=== PATIENT | female | born 1960 | race Caucasian/White ===

== ENCOUNTER 2017-08-26 21:09 | Emergency (ER) | payer BC ==
[2017-08-26] MEDS ORDERED: Penicillin G Benzathine/Procaine 600-600 1.2 Millunits/2 ML Syringe IM ONE (22:00)
[2017-08-26] MEDS ORDERED: Penicillin G Benzathine 600,000 Units/1 ML Syringe IM ONE (22:11)
--- NOTE | 2017-08-26 22:18 | EDM.PDOC ---
ED HPI GENERAL MEDICAL PROBLEM - General Chief Complaint: ENT Problem Stated Complaint: sore throat Time Seen by Provider: 08/26/17 21:59 Source of Information: Reports: Patient History Limitations: Reports: No Limitations - History of Present Illness INITIAL COMMENTS - FREE TEXT/NARRATIVE: Patient presents with a very sore throat that started yesterday. She felt feverish but didn't check her temperature. It hurts too much to swallow so isn' t eating or drinking much. Pt says she hasn't had a sore throat in years but has had strep before. - Related Data Allergies Allergy/AdvReac Type Severity Reaction Status Date / Time ciprofloxacin Allergy Hives Verified 06/29/16 18:42 Home Meds: Home Meds . 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: Musculoskeletal History: Reports: Back Pain, Chronic, Neck Pain, Chronic Endocrine/Metabolic History: Reports: Obesity/BMI 30+ - Infectious Disease History Infectious Disease History: Reports: Chicken Pox, Measles, Mononucleosis, Mumps - Past Surgical History Neurological Surgical History: Reports: C-Spine, Other (See Below) Social & Family History - Family History Family Medical History: Unobtainable - Tobacco Use Smoking Status *Q: Current Every Day Smoker Years of Tobacco use: 45 Packs/Tins Daily: 0.5 - Caffeine Use Caffeine Use: Reports: Coffee - Recreational Drug Use Recreational Drug Use: No ED ROS ENT - Review of Systems Review Of Systems: See Below Constitutional: Reports: Chills, Malaise HEENT: Reports: Throat Pain. Denies: Vision Change Respiratory: Reports: Cough (very little but tonight did a bit). Denies: Shortness of Breath Cardiovascular: Denies: Chest Pain, Lightheadedness, Syncope GI/Abdominal: Reports: Diarrhea (just a bit tongiht). Denies: Abdominal Pain, Constipation, Vomiting : Denies: Dysuria, Flank Pain Musculoskeletal: Reports: No Symptoms Skin: Denies: Cyanosis, Jaundice, Mottled, Pallor, Diaphoresis Neurological: Reports: No Symptoms Psychiatric: Denies: Agitation, Anxiety, Confusion ED EXAM, ENT - Physical Exam Exam: See Below Exam Limited By: No Limitations General Appearance: Alert, WD/WN, No Apparent Distress Eye Exam: Bilateral Eye: EOMI, Normal Inspection, PERRL Ears: Normal External Exam, Normal Canal, Hearing Grossly Normal, Normal TMs Nose: Normal Inspection, No Blood Mouth/Throat: Normal Gums, Normal Lips, Pharyngeal Erythema, Tonsillar Erythema , Tonsillar Exudates, Tonsillar Swelling. No: Throat Swelling Head: Atraumatic, Normocephalic Neck: Normal Inspection, Supple, Lymphadenopathy (L), Lymphadenopathy (R), Tender Lateral Respiratory/Chest: No Respiratory Distress, Lungs Clear, Normal Breath Sounds, No Accessory Muscle Use Cardiovascular: Regular Rate, Rhythm, No Murmur Back: No: CVA Tenderness (L), CVA Tenderness (R) Extremities: Normal Inspection, Normal Range of Motion Neurological: Alert, Oriented, Normal Cognition, No Motor/Sensory Deficits Psychiatric: Normal Affect, Normal Mood Skin: Warm, Dry, Intact, Normal Color, No Rash Course - Orders/Labs/Meds Meds: Medications Discontinued Medications Generic Name Dose Route Start Last Admin Trade Name [place] PRN Reason Stop Dose Admin Penicillin G Benzathine 1,200,000 units 08/26/17 22:11 Bicillin L-A IM 08/26/17 22:12 ONETIME ONE - Re-Assessments/Exams Free Text/Narrative Re-Assessment/Exam: 08/26/17 22:22 Strep screen is positive for Group A. Discussed findings and treatment plan with patient and she is discharged in stable condition. Departure - Departure Time of Disposition: 22:19 Disposition: Home, Self-Care 01 Condition: Good Clinical Impression: Pharyngitis, streptococcal, acute Acute streptococcal tonsillitis, unspecified Qualifiers: Streptococcal tonsillitis recurrence: non-recurrent Qualified Code(s): J03.00 - Acute streptococcal tonsillitis, unspecified - Discharge Information Additional Instructions: 1. Drink 8 cups of water daily. 2. Use Ibuprofen 600 mg three times a day for pain control as needed. 3. Warm salt-water gargles every 1-2 hours helps quite a bit too. 4. A sore-throat spray is also helpful for short-term. 5. Follow up with your PCP if not improving in 2-3 days or sooner if worsening.
[2017-08-26] MEDS ORDERED: Phenol 1.4% Oral Spray 177 ML Bottle MUCMEM PRN (22:22)
[2017-08-27 01:03] VITALS: BP 141/68
== END 2017-08-26 22:30 | disposition home or self-care (01) ==
LOC: KA.ED 21:09
DX: J03.00 Acute streptococcal tonsillitis, unspecified (principal); Z88.1 Allergy status to other antibiotic agents; F17.210 Nicotine dependence, cigarettes, uncomplicated
CPT/HCPCS: 87430; 96372; 99283; J0558

== ENCOUNTER 2021-05-08 14:34 | Emergency (ER) | payer BC ==
[2021-05-08 15:02] VITALS: BP 171/81; PULSE 76
[2021-05-08] MEDS: Lidocaine 1% 20 ML MDV INJECT ONE (15:30)
[2021-05-08] MEDS: Lidocaine 1% 20 ML MDV ONE (15:30)
[2021-05-08] MEDS: Bacitracin/Neomycin/Polymyxin B Oint 0.9 GM U/D Packet TOP ONE (15:36)
[2021-05-08] MEDS: Diphtheria,Pertussis(Acell),Tetanus Vaccine 0.5 ML Syringe IM ONE (15:40)
--- NOTE | 2021-05-08 15:43 | EDM.PDOC ---
ED HPI GENERAL MEDICAL PROBLEM - General Chief Complaint: Laceration Stated Complaint: finger laceration Time Seen by Provider: 05/08/21 15:16 Source of Information: Reports: Patient History Limitations: Reports: No Limitations - History of Present Illness INITIAL COMMENTS - FREE TEXT/NARRATIVE: Patient presents with laceration on left hand. It happened while cutting roast beef. No numbness or paralysis. Tetanus is 9 years ago. No other injuries. Treatments SYSTEMS TECHNOLOGIST: Reports: Dressing(s) Left Finger-Index Pain Score (Numeric/FACES): 7 - Related Data Allergies Allergy/AdvReac Type Severity Reaction Status Date / Time ciprofloxacin Allergy Hives Verified 05/08/21 14:57 Home Meds: Home Meds Cyanocobalamin/Folic Acid [Vitamin D96-[id number] Acid] 1 tab PO DAILY 08/27/17 [History] Garlic 1 each PO DAILY 08/27/17 [History] Multivitamin [Multivitamins] 1 tab PO DAILY 08/27/17 [History] L.acidoph,Paracasei, B.lactis [Probiotic] 1 cap PO DAILY 05/08/21 [History] Past Medical History HEENT History: Reports: Impaired Vision Respiratory History: Reports: Pneumonia, Recurrent, SOB Gastrointestinal History: Reports: Diverticulosis [employer]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: Musculoskeletal History: Reports: Back Pain, Chronic, Neck Pain, Chronic Endocrine/Metabolic History: Reports: Obesity/BMI 30+ - Infectious Disease History Infectious Disease History: Reports: Chicken Pox, Measles, Mononucleosis, Mumps - Past Surgical History Head Surgeries/Procedures: Reports: None HEENT Surgical History: Reports: LASIK Respiratory Surgical History: Reports: None GI Surgical History: Reports: Cholecystectomy Neurological Surgical History: Reports: C-Spine, Lumbar Spine, Other (See Below) Other Neurological Surgeries/Procedures: 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 ED EXAM, SKIN/RASH Exam: See Below Exam Limited By: No Limitations General Appearance: Alert, WD/WN, No Apparent Distress Eye Exam: Bilateral Eye: EOMI, Normal Inspection, PERRL Ears: Normal External Exam, Hearing Grossly Normal Nose: Normal Inspection, No Blood Throat/Mouth: Normal Inspection, Normal Lips, Normal Voice, No Airway Compromise Head: Atraumatic, Normocephalic Neck: Normal Inspection, Full Range of Motion Respiratory/Chest: No Respiratory Distress, Lungs Clear, Normal Breath Sounds, No Accessory Muscle Use Cardiovascular: Regular Rate, Rhythm, No Murmur Extremities: Normal Inspection, Normal Range of Motion, Normal Capillary Refill Neurological: Alert, Oriented, Normal Cognition, No Motor/Sensory Deficits Psychiatric: Normal Affect, Normal Mood Skin: Warm, Dry, Normal Color, No Rash, Wound/Incision (2 cm laceration of dorsal 2nd MCP joint of left hand. Distal CMS is intact. No tendon or nerve injury.) ED SKIN PROCEDURES - Laceration/Wound Repair Left Dorsal Hand Appearance: Subcutaneous Distal NVT: Neuro & Vascular Intact, No Tendon Injury Anesthetic Type: Local Local Anesthesia - Lidocaine (Xylocaine): 1% Plain Local Anesthetic Volume: 1cc Skin Prep: Chlorhexidine (Hibiciens) Exploration/Debridement/Repair: Wound Explored, In a Bloodless Field, Explored to Base Closed with: Sutures Lac/Wound length In cm: 2 Suture Size: 4-0 # of Sutures: 5 Suture Type: Nylon, Interrupted, Simple Sterile Dressing Applied: Nurse Tetanus Status Addressed: Yes (TDAP given) Complications: No Course - Vital Signs Last Recorded V/S: Last Vital Signs Temp 97 F 05/08/21 14:58 Pulse 76 05/08/21 14:58 Resp 18 05/08/21 14:58 BP 171/81 H 05/08/21 14:58 Pulse Ox 98 05/08/21 14:58 - Orders/Labs/Meds Orders: Active Orders 24 hr Category Date Time Status Vaccine to be Administered/Admin Charge [RC] ASDIRECTED Care 05/08/21 15:03 Active Meds: Medications Discontinued Medications Generic Name Dose Route Start Last Admin Trade Name Freq PRN Reason Stop Dose Admin Diphtheria/Tetanus/Acell Pertussis 0.5 ml 05/08/21 15:03 Diphtheria,Pertussis(Acell),Tetanus Vaccine 0.5 Ml Syringe IM 05/08/21 15:04 .ONCE ONE Lidocaine HCl Confirm 05/08/21 15:14 05/08/21 15:30 Lidocaine 1% 20 Ml Mdv Administered 05/08/21 15:15 Not Given Dose 20 ml .ROUTE .STK-MED ONE Lidocaine HCl 1.3 ml 05/08/21 15:29 05/08/21 15:30 Lidocaine 1% 20 Ml Mdv INJECT 05/08/21 15:30 1.3 ml ONETIME ONE Administration Neomycin/Polymyxin/Bacitracin 1 each 05/08/21 15:32 Bacitracin/Neomycin/Polymyxin B Oint 0.9 Gm U/D Packet TOP 05/08/21 15:33 ONETIME ONE - Re-Assessments/Exams Free Text/Narrative Re-Assessment/Exam: 05/08/21 15:47 Discussed findings and treatment plan with patient. She agrees. Sterile technique is used throughout procedure as above. Patient tolerated it well and was discharged to home in stable condition. Departure - Departure Time of Disposition: 15:38 Disposition: Home, Self-Care 01 Condition: Good Clinical Impression: Laceration of left hand without complication, excluding fingers Qualifiers: Encounter type: initial encounter Qualified Code(s): S61.412A - Laceration without foreign body of left hand, initial encounter - Discharge Information Instructions: Laceration Care, Adult, [id number] Referrals: Christianne Kuhn, EMERGENCY ROOM PHYSICIAN ASSISTANT [Primary Care Provider] - Additional Instructions: Keep wound clean and dry except for showering or washing under fresh running water. Don't submerge in sink or tub. Clean daily and apply antibiotic ointment or petroleum jelly to keep wound edges moist for optimal healing. See your PCP in ten days for suture removal. Recheck sooner if any problems or sign of infection. Sepsis Event Note (ED) - Evaluation Sepsis Screening Result: No Definite Risk - Focused Exam Vital Signs: Vital Signs Temp Pulse Resp BP Pulse Ox 05/08/21 14:58 97 F 76 18 171/81 H 98 - My Orders Last 24 Hours: My Active Orders 05/08/21 15:03 Vaccine to be Administered/Admin Charge [RC] ASDIRECTED - Assessment/Plan Last 24 Hours: My Active Orders 05/08/21 15:03 Vaccine to be Administered/Admin Charge [RC] ASDIRECTED
== END 2021-05-08 15:50 | disposition home or self-care (01) ==
LOC: KA.ED 14:34
DX: S61.412A Laceration without foreign body of left hand, initial encounter (principal); E66.9 Obesity, unspecified; Z68.30 Body mass index [BMI] 30.0-30.9, adult; Z23 Encounter for immunization; Z88.1 Allergy status to other antibiotic agents; W26.0XXA Contact with knife, initial encounter
CPT/HCPCS: 12001; 90471; 90715; 99282-25; 99283